=== PATIENT | male | born 1985 | race Caucasian/White ===

== ENCOUNTER → 2020-06-02 08:20 | Outpatient (CLI) | payer OTHER, SELFPAY ==
--- NOTE | ~2020-06-02 | XR_ITS ---
EXAMINATION: XR TMJ BI DATE: 06/02/2020 09:06 INDICATION: Right-sided predominant temporomandibular joint pain TECHNIQUE: Closed and open mouth views of both the left and right temporomandibular joints were obtai volodymyr. COMPARISON: None. FINDINGS: Normal alignment of the lateral temporomandibular joints in both the open and closed mouth positions. No significant osteoarthritic changes identified on either the left or right. No fractures. No air-f luid levels evident in the mastoid air cells or paranasal sinuses. IMPRESSION: 1. Normal bilateral temporomandibular joints. Reviewed, dictated and finalized at location B. TENDER
== END ==
PROVIDERS: PCP Internal Medicine; Visit Provider Internal Medicine
DX: M26.609 Unspecified temporomandibular joint disorder, unspecified side (principal)
CPT/HCPCS: 70330

== ENCOUNTER → 2022-03-11 07:39 | Outpatient (CLI) | payer OTHER, SELFPAY ==
--- NOTE | ~2022-03-11 | MR_ITS ---
EXAMINATION: MR foot RT wo con DATE: 03/11/2022 08:17 INDICATION: Right foot pain TECHNIQUE: Magnetic resonance imaging (MRI) of the right fore/mid foot was performed without intraven ous contrast. Sequences included sagittal T1-weighted FSE, sagittal fluid sensitive FSE STIR, coronal PD-weighted FS FSE, coronal T1-weighted FSE, axial PD-weighted FS FSE, and axial PD-weighted FSE. A marker indicating site of maximal pain head CT is been placed overlying the central forefoot, dorsal to the second and third metatarsal diaphyses. COMPARISON: None FINDINGS: Nondisplaced intra-articular fracture at the base of the third metatarsal with prominent surrounding marrow and soft tissue edema. There appears to be some low signal intensity sclerosis along the fract ure planes suggesting this may be subacute. There appear to be erosions at the juxtaposed base of the third and fourth metatarsals at either side of a linear low signal intensity likely intermetatarsal ligament. There is some surrounding marrow edema at the base of the fourth metatarsal without evident fracture. Mild polyarticular osteoarthritis at the tarsal metatarsal, first metatarsophalangeal and multiple interphalangeal joints. No joint effusions. The Lisfranc ligament complex and the collateral ligament complexes at the metatarsophalangeal and interphalangeal joints are normal. Visualized port ions of the flexor and extensor tendons are normal. Intrinsic musculature of the foot is normal aside from the previous noted soft tissue edema in the region of the third metatarsal base fracture. IMPRESSION: 1. Nondisplaced likely subacute to chronic intra-articular fracture at the base of the right third me tatarsal. 2. Nonspecific cystic/erosive change at both sides of the intermetatarsal ligament between the base o f the third and fourth metatarsals which could be related to erosion secondary to inflammatory change related to the fracture at the third metatarsal base versus cystic change related to osteoarthritis or inflammatory process heterogeneity to the acromioclavicular ligament inflammation related to eithe r an inflammatory or crystalline arthritis. 3. 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 Reviewed, dictated and finalized at location A. [employer]SH[employer] DEVELOPMENT MANAGER IMPRESSION: 1. Nondisplaced likely subacute to chronic intra-articular fracture at the base of the right third metatarsal. 2. Nonspecific cystic/erosive change at both sides of the intermetatarsal ligam ent between the base of the third and fourth metatarsals which could be related to erosion secondary to inflammatory change related to the fracture at the thi rd metatarsal base versus cystic change related to osteoarthritis or inflammato ry process heterogeneity to the acromioclavicular ligament inflammation related to either an inflammatory or crystalline arthritis. 3. 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
== END ==
PROVIDERS: PCP Internal Medicine; Visit Provider Podiatrist Foot & Ankle Surgery
DX: M19.071 Primary osteoarthritis, right ankle and foot (principal); S92.334A Nondisplaced fracture of third metatarsal bone, right foot, initial encounter for closed fracture; X58.XXXA Exposure to other specified factors, initial encounter
CPT/HCPCS: 73718